=== PATIENT | female | born 1980 | race Caucasian/White ===

== ENCOUNTER 2017-03-13 07:43 | Inpatient (IN) | payer OTHER ==
[~2017-03-13] VITALS: Ht 167.6 cm; Wt 94.8 kg
[~2017-03-13 07:43] MED LIST: DAILY VITE1 EAC1 PO; WELLBUTRIN XL150 MG PO
[2017-03-13 09:02] VITALS: BP 111/68
[2017-03-13 16:28] VITALS: BP 124/66
[2017-03-13 18:52] VITALS: BP 123/68
[2017-03-13 19:35] VITALS: BP 101/55
[2017-03-13 23:30] VITALS: BP 96/53
[2017-03-14 03:16] VITALS: BP 102/59
[2017-03-14 07:24] LABS: HEMATOCRIT 30.6 % (36.0-46.0); MCH 28.7 PG (29.0-34.0); MCHC 33.3 G/DL (30.0-36.0); MEAN PLAT.VOLUME 10.2 uM^3 (9.5-12.4); PLATELET COUNT 168 K/uL (156-360); RBC DIS.WIDTH-CV 11.9 % (11.8-14.6); RBC DIS.WIDTH-SD 36.6 % (39-53)
[2017-03-14 07:49] LABS: ANION GAP 8 MEQ/L (2-14); CHLORIDE 108 MEQ/L (99-109); GFR ESTIMATE (CALCULATED) > 59 mL/min/; GLUCOSE 114 mg/dL (70-99); POTASSIUM 4.6 MEQ/L (3.7-5.4); SAMPLE HEMOLYSIS CHECK 0; SAMPLE ICTERIC CHECK 0; SAMPLE LIPEMIA CHECK 0; SODIUM 140 MEQ/L (136-147); UREA NITROGEN (BUN) 7 mg/dL (9-23)
[2017-03-14 08:06] LABS: RED BLOOD COUNT 3.56 M/uL (3.80-5.20)
[2017-03-14 08:15] VITALS: BP 119/66
[2017-03-14 11:57] VITALS: BP 108/56
[2017-03-14 16:40] VITALS: BP 105/60
[2017-03-14 19:47] VITALS: BP 116/55
[2017-03-14 23:33] VITALS: BP 99/57
[2017-03-15 03:45] VITALS: BP 110/54
[2017-03-15] MEDS ORDERED: ENDOCET 5-3251 EACH PO (08:02)
[2017-03-15] MEDS ORDERED: CHROMAGEN SOFT1 EACH PO (08:02)
[2017-03-15] MEDS ORDERED: IBUPROFEN800 MG PO (08:02)
[2017-03-15 11:20] VITALS: BP 110/68
== END 2017-03-15 11:55 | disposition home or self-care (01) | DRG 743 ==
LOC: 2SOUTH 07:43 → 2EASTP 14:49 → 2SOUTH 15:05 → 2EASTP 03-15 11:55
PROVIDERS: Obstetrics & Gynecology Obstetrics
PROC: 0UTC0ZZ Resection of Cervix, Open Approach (ICD-10-PCS; principal; 2017-03-13)
PROC: 0UT90ZZ Resection of Uterus, Open Approach (ICD-10-PCS; principal; 2017-03-13)
PROC: 0UT20ZZ Resection of Bilateral Ovaries, Open Approach (ICD-10-PCS; principal; 2017-03-13)
PROC: 0UT70ZZ Resection of Bilateral Fallopian Tubes, Open Approach (ICD-10-PCS; principal; 2017-03-13)
PROC: 0TJB8ZZ Inspection of Bladder, Via Natural or Artificial Opening Endoscopic (ICD-10-PCS; 2017-03-13)
DX: N92.1 Excessive and frequent menstruation with irregular cycle (principal); D27.0 Benign neoplasm of right ovary; D27.1 Benign neoplasm of left ovary; Z80.3 Family history of malignant neoplasm of breast; Z82.5 Family history of asthma and other chronic lower respiratory diseases; Z90.49 Acquired absence of other specified parts of digestive tract; Z98.51 Tubal ligation status; Z86.59 Personal history of other mental and behavioral disorders; Z80.41 Family history of malignant neoplasm of ovary; Z80.49 Family history of malignant neoplasm of other genital organs; Z86.39 Personal history of other endocrine, nutritional and metabolic disease; M51.37 Other intervertebral disc degeneration, lumbosacral region
CPT/HCPCS: 80048; 84702; 85025; 85027; 86900; 86901; 88305; 88307; 88311; 88331; J0330; J0690; J1100; J1170; J1885; J2405; J2710; J2765; J3010; J7120; P9045; Q0175